=== PATIENT | female | born 1975 | race American Indian/Alaskan Native ===

== ENCOUNTER 2022-03-24 20:03 | Emergency (ER) | payer MEDICAID, OTHER | END 2022-03-24 21:20 | disposition home or self-care (01) | LOC: MW.ED 20:03 | DX: Z76.0 Encounter for issue of repeat prescription (principal); E11.9 Type 2 diabetes mellitus without complications | CPT/HCPCS: 82947; 99282 ==

== ENCOUNTER 2022-05-15 22:45 | Emergency (ER) | payer MEDICAID, OTHER ==
[2022-05-15 23:33] LABS: CARBON DIOXIDE,CO2 21.5 mmol/L (21.0-32.0); POTASSIUM,K 4.3 mmol/L (3.5-5.1)
[2022-05-15] MEDS ORDERED: Magnesium Sulfate/Water 2 GM in Premix Bag 1 BAG IV ONE (23:37)
[2022-05-15] MEDS ORDERED: Lactated Ringers 1,000 ML IV STA (23:37)
[2022-05-15 23:43] LABS: CORONAVIRUS COVID-19 NAA NEGATIVE (NEGATIVE); INFLUENZA A NAA NEGATIVE (NEGATIVE); INFLUENZA B NAA NEGATIVE (NEGATIVE); RESPIRATORY SYNCYTIAL VIR NAA NEGATIVE (NEGATIVE)
== END 2022-05-16 04:27 | disposition home or self-care (01) ==
LOC: MW.ED 22:45
DX: R07.9 Chest pain, unspecified (principal); R06.02 Shortness of breath; E11.9 Type 2 diabetes mellitus without complications; N28.9 Disorder of kidney and ureter, unspecified; D64.9 Anemia, unspecified; F17.210 Nicotine dependence, cigarettes, uncomplicated; R79.89 Other specified abnormal findings of blood chemistry; Z20.822 Contact with and (suspected) exposure to COVID-19; Z88.5 Allergy status to narcotic agent; Z91.030 Bee allergy status; Z88.8 Allergy status to other drugs, medicaments and biological substances; Z79.4 Long term (current) use of insulin
CPT/HCPCS: 0241U; 36415; 71045; 80053; 83735; 83880; 84484; 85014; 85018; 85025; 85610; 93005; 96365; 96366; 99285; J3475; J7120

== ENCOUNTER 2022-06-14 17:59 | Emergency (ER) | payer MEDICAID, OTHER | END 2022-06-14 19:03 | disposition left against medical advice (07) | LOC: MW.ED 17:59 | DX: Z53.21 Procedure and treatment not carried out due to patient leaving prior to being seen by health care provider (principal) ==

== ENCOUNTER 2022-06-16 05:38 | Emergency (ER) | payer MEDICAID, OTHER ==
[2022-06-16 06:41] LABS: CARBON DIOXIDE,CO2 22.4 mmol/L (21.0-32.0); POTASSIUM,K 4.6 mmol/L (3.5-5.1)
[2022-06-16] MEDS ORDERED: Furosemide 40 MG in Sodium Chloride 0.9% 50 ML IV STA (07:29)
[2022-06-16 07:44] LABS: CORONAVIRUS COVID-19 NAA NEGATIVE (NEGATIVE); INFLUENZA A NAA NEGATIVE (NEGATIVE); INFLUENZA B NAA NEGATIVE (NEGATIVE); RESPIRATORY SYNCYTIAL VIR NAA NEGATIVE (NEGATIVE)
[2022-06-16] MEDS ORDERED: Furosemide 40 MG/4 ML VIAL IVPUSH ONE ×2 (08:03)
[2022-06-16 08:22] LABS: BILIRUBIN INDIRECT 0.2
== END 2022-06-16 10:51 | disposition home or self-care (01) ==
LOC: MW.ED 05:38
DX: I11.0 Hypertensive heart disease with heart failure (principal); I50.9 Heart failure, unspecified; E11.9 Type 2 diabetes mellitus without complications; Z91.030 Bee allergy status; Z88.5 Allergy status to narcotic agent; Z88.8 Allergy status to other drugs, medicaments and biological substances; Z79.4 Long term (current) use of insulin; Z79.899 Other long term (current) drug therapy; Z20.822 Contact with and (suspected) exposure to COVID-19
CPT/HCPCS: 0241U; 36415; 71045; 74176; 80048; 80076; 83880; 85025; 85610; 85730; 96374; 99285; J1940

== ENCOUNTER 2022-08-16 18:31 | Inpatient (IN) | payer MEDICAID, OTHER ==
[2022-08-16] MEDS ORDERED: Sodium Chloride 0.9% 2.5 ML Syringe FLUSH PRN (21:26)
[2022-08-16] MEDS ORDERED: Sodium Chloride 0.9% 10 ML Syringe FLUSH PRN (21:26)
[2022-08-16] MEDS ORDERED: Ondansetron 4 MG/2 ML SDV IVPUSH ONE (22:11)
[2022-08-16 22:30] LABS: CARBON DIOXIDE,CO2 22.8 mmol/L (21.0-32.0); POTASSIUM,K 4.8 mmol/L (3.5-5.1)
[2022-08-16 22:34] LABS: CORONAVIRUS COVID-19 NAA NEGATIVE (NEGATIVE); INFLUENZA A NAA NEGATIVE (NEGATIVE); INFLUENZA B NAA NEGATIVE (NEGATIVE); RESPIRATORY SYNCYTIAL VIR NAA NEGATIVE (NEGATIVE)
[2022-08-16] MEDS ORDERED: Furosemide 40 MG/4 ML VIAL IVPUSH ONE (23:29)
[2022-08-17 06:47] LABS: BLOOD UREA NITROGEN,BUN 76 mg/dL (7.0-18.0); CARBON DIOXIDE,CO2 24.7 mmol/L (21.0-32.0); CHLORIDE,CL 107 mmol/L (98-107); GLUCOSE RANDOM 124 mg/dL (74-106); POTASSIUM,K 4.4 mmol/L (3.5-5.1); SODIUM,NA 141 mmol/L (136-145)
[2022-08-17 06:52] LABS: ESTIMATED GFR 16 mL/min (>60)
[2022-08-17] MEDS ORDERED: Furosemide 20 MG/2 ML VIAL IVPUSH ONE (08:00)
[2022-08-17] MEDS ORDERED: Ondansetron 4 MG/2 ML SDV IVPUSH PRN (08:01)
[2022-08-17] MEDS ORDERED: Sodium Chloride 0.9% 10 ML Syringe FLUSH PRN (08:01)
[2022-08-17] MEDS ORDERED: Sodium Chloride 0.9% 2.5 ML Syringe FLUSH PRN (08:01)
[2022-08-17] MEDS ORDERED: Glucagon,Human Recombinant 1 MG Vial IM PRN (08:05)
[2022-08-17] MEDS ORDERED: 50% Dextrose in Water 50 ML Syringe IVPUSH PRN (08:05)
[2022-08-17] MEDS: Insulin Aspart 100 Units/ML 3 ML Pen SUBCUT SCH ×2 (11:53→16:53)
[2022-08-17] MEDS: Heparin Sodium 5,000 Units/ML Vial SUBCUT SCH (13:50)
[2022-08-17] MEDS: Gabapentin 300 MG Cap PO SCH (13:50)
[2022-08-17] MEDS: Furosemide 40 MG/4 ML VIAL IVPUSH SCH (13:51)
[2022-08-17] MEDS ORDERED: Acetaminophen 325 MG Tab PO PRN (14:58)
[2022-08-17] MEDS ORDERED: Metolazone 5 MG Tab PO ONE (16:05)
[2022-08-17] MEDS ORDERED: Furosemide 100 MG/10 ML SDV IVPUSH ONE (17:30)
[2022-08-17] MEDS: Insulin Glargine,Hum.Rec.Anlog 100 UNIT/ML 3 ML Pen SUBCUT SCH (20:43)
[2022-08-17] MEDS: Carvedilol 3.125 MG Tab PO SCH (20:43)
[2022-08-18] MEDS: Heparin Sodium 5,000 Units/ML Vial SUBCUT SCH ×2 (01:10→13:47)
[2022-08-18] MEDS: Pantoprazole 40 MG Tab.CR PO SCH ×2 (05:52→08:24)
[2022-08-18 07:12] LABS: BLOOD UREA NITROGEN,BUN 77 mg/dL (7.0-18.0); CHLORIDE,CL 102 mmol/L (98-107); GLUCOSE RANDOM 104 mg/dL (74-106); POTASSIUM,K 3.9 mmol/L (3.5-5.1); SODIUM,NA 138 mmol/L (136-145)
[2022-08-18 07:13] LABS: ESTIMATED GFR 15 mL/min (>60)
[2022-08-18] MEDS: Insulin Aspart 100 Units/ML 3 ML Pen SUBCUT SCH ×3 (07:48→17:18)
[2022-08-18] MEDS: Carvedilol 3.125 MG Tab PO SCH ×2 (08:23→21:22)
[2022-08-18] MEDS: Iron Polysaccharides Complex 150 MG Cap PO SCH (08:23)
[2022-08-18] MEDS: Gabapentin 300 MG Cap PO SCH (08:23)
[2022-08-18] MEDS: Empagliflozin 10 MG Tab PO SCH (08:23)
[2022-08-18] MEDS: Furosemide 40 MG/4 ML VIAL IVPUSH SCH ×3 (08:24→21:23)
[2022-08-18] MEDS: Insulin Glargine,Hum.Rec.Anlog 100 UNIT/ML 3 ML Pen SUBCUT SCH (22:02)
[2022-08-19] MEDS: Heparin Sodium 5,000 Units/ML Vial SUBCUT SCH (01:17)
[2022-08-19] MEDS: Pantoprazole 40 MG Tab.CR PO SCH (06:31)
[2022-08-19] MEDS: Furosemide 40 MG/4 ML VIAL IVPUSH SCH (06:32)
[2022-08-19] MEDS: Insulin Aspart 100 Units/ML 3 ML Pen SUBCUT SCH ×2 (07:33→11:40)
[2022-08-19 07:43] LABS: CARBON DIOXIDE,CO2 26.2 mmol/L (21.0-32.0); POTASSIUM,K 3.7 mmol/L (3.5-5.1)
[2022-08-19] MEDS: Empagliflozin 10 MG Tab PO SCH (08:32)
[2022-08-19] MEDS: Iron Polysaccharides Complex 150 MG Cap PO SCH (08:32)
[2022-08-19] MEDS: Gabapentin 300 MG Cap PO SCH (08:32)
[2022-08-19] MEDS: Carvedilol 3.125 MG Tab PO SCH (08:33)
== END 2022-08-19 12:55 | disposition home or self-care (01) | DRG 682 ==
LOC: MW.ED 18:31 → MW.MS 08-17 03:53
PROVIDERS: ADMIT Pediatrics; ATTEND Pediatrics
DX: N17.9 Acute kidney failure, unspecified (principal); I50.23 Acute on chronic systolic (congestive) heart failure; I13.0 Hypertensive heart and chronic kidney disease with heart failure and stage 1 through stage 4 chronic kidney disease, or unspecified chronic kidney disease; J90 Pleural effusion, not elsewhere classified; J98.11 Atelectasis; N18.5 Chronic kidney disease, stage 5; K70.30 Alcoholic cirrhosis of liver without ascites; E11.22 Type 2 diabetes mellitus with diabetic chronic kidney disease; D50.9 Iron deficiency anemia, unspecified; K21.9 Gastro-esophageal reflux disease without esophagitis; M54.9 Dorsalgia, unspecified; G89.29 Other chronic pain; Z91.030 Bee allergy status; Z88.5 Allergy status to narcotic agent; Z79.4 Long term (current) use of insulin; Z79.899 Other long term (current) drug therapy; Z87.891 Personal history of nicotine dependence
CPT/HCPCS: 0241U; 36415; 71045; 71045-26; 71250; 71250-26; 80053; 80305-QW; 81001; 82947; 83605; 83690; 83880; 84484; 85025; 85027; 85610; 86140; 93005; 93010; 93306; 96374; 96375; 99223; 99233; 99238; 99284; 99285-25; A9270-GY; J1644; J1815-GY; J1940; J2405